=== PATIENT | female | born 1965 | race Hispanic/Latino ===

== ENCOUNTER 2018-12-31 14:02 | Emergency (ER) | payer SELFPAY ==
--- NOTE | 2018-12-31 16:08 | EDPHYS ---
Physician Documentation [facility] Name: Ev Mandujano Age: 53 yrs Sex: Female : 1965 Arrival Date: 12/31/2018 Time: 14:04 Bed 6 Private MD: ED Physician Rosas Chirinos HPI: 12/31 18:38 This 53 yrs old Female presents to ER via Ambulatory with complaints of gs Abnormal EKG, Sore Throat. 18:38 Onset: The symptoms/episode began/occurred 5 day(s) ago. Severity of symptoms: At their gs worst the symptoms were moderate, in the emergency department the symptoms are unchanged. Associated signs and symptoms: Pertinent positives: flu-like symptoms. The patient has experienced similar episodes in the past, a few times. The patient has been recently seen by a physician: the patient's primary care provider, earlier today, with similar presenting complaints, wanted to refer er to evaluation of ekg. 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 - Social history:: Smoking status: Patient/guardian denies using tobacco. - Ebola Screening: : No symptoms or risks identified at this time. ROS: 18:38 All other systems are negative. gs 18:38 Cardiovascular: Negative for chest pain, orthopnea. gs 18:38 Respiratory: Negative for orthopnea, pleurisy, shortness of breath. Exam: 16:06 ECG was reviewed by the Attending Physician. gs 18:38 Head/Face: Normocephalic, atraumatic. Eyes: Pupils equal round and reactive to light, gs extra-ocular motions intact. Lids and lashes normal. Conjunctiva and sclera are non-icteric and not injected. Cornea within normal limits. Periorbital areas with no swelling, redness, or edema. Neck: Trachea midline, no thyromegaly or masses palpated, and no cervical lymphadenopathy. Supple, full range of motion without nuchal rigidity, or vertebral point tenderness. No Meningismus. Chest/axilla: Normal chest wall appearance and motion. Nontender with no deformity. No lesions are appreciated. Cardiovascular: Regular rate and rhythm with a normal S1 and S2. No gallops, murmurs, or rubs. Normal PMI, no JVD. No pulse deficits. Respiratory: Lungs have equal breath sounds bilaterally, clear to auscultation and percussion. No rales, rhonchi or wheezes noted. No increased work of breathing, no retractions or nasal flaring. Abdomen/GI: Soft, non-tender, with normal bowel sounds. No distension or tympany. No guarding or rebound. No evidence of tenderness throughout. Back: No spinal tenderness. No costovertebral tenderness. Full range of motion. Skin: Warm, dry with normal turgor. Normal color with no rashes, no lesions, and no evidence of cellulitis. MS/ Extremity: Pulses equal, no cyanosis. Neurovascular intact. Full, normal range of motion. Neuro: Awake and alert, GCS 15, oriented to person, place, time, and situation. Cranial nerves II-XII grossly intact. Motor strength 5/5 in all extremities. Sensory grossly intact. Cerebellar exam normal. Normal gait. 18:38 Constitutional: The patient appears in no acute distress, alert, awake. 18:38 ENT: Posterior pharynx: erythema, that is mild. Vital Signs: 14:28 BP 144 / 87; Pulse 75; Resp 16 S; Temp 97.4(TE); Pulse Ox 97% on R/A; Weight 72.57 kg aa5 (R); Pain 7/10; MDM: 15:59 Patient medically screened. 18:38 Data reviewed: vital signs, nurses notes. Response to treatment: the patient's gs condition has returned to base line. 12/31 15:23 Order name: EKG; Complete Time: 15:23 12/31 15:23 Order name: EKG - Nurse/Tech; Complete Time: 15:52 EC:06 Rate is 93 beats/min. Rhythm is regular. ND interval is normal. QRS interval is gs prolonged. T waves are Normal. No ST changes noted. Clinical impression: Abnormal EKG without significant change. Interpreted by me. Administered Medications: No medications were administered Disposition: 12/31/18 16:07 Discharged to Home. Impression: Ventricular premature depolarization. - Condition is Stable. - Discharge Instructions: Premature Ventricular Contraction. - Medication Reconciliation Form, Thank You Letter, Antibiotic Education, Prescription Opioid Use form. - Follow up: Bob Phoenix MD; When: 2 - 3 days; Reason: Re-evaluation by your physician. Signatures: Neeta Love Audri, RN RN aa5 Rosas Chirinos MD MD gs Corrections: (The following items were deleted from the chart) 16:57 16:07 12/31/2018 16:07 Discharged to Home. Impression: Ventricular premature bd depolarization. Condition is Stable. Forms are Medication Reconciliation Form, Thank You Letter, Antibiotic Education, Prescription Opioid Use. Follow up: Bob Phoenix; When: 2 - 3 days; Reason: Re-evaluation by your physician. gs
--- NOTE | 2018-12-31 16:08 | ER ---
Nurse's Notes [facility] Name: Ev Mandjuano Age: 53 yrs Sex: Female : 1965 Arrival Date: 12/31/2018 Time: 14:04 Bed 6 Private MD: Diagnosis: Ventricular premature depolarization Presentation: 12/31 14:25 Presenting complaint: Patient states: sore throat x 2 week ago. Pt states "I went to [facility] [place] for the sore throat and they did an EKG and sent me here". Pt denies chest pain, denies palpitations. Transition of care: patient was not received from another setting of care. Onset of symptoms was December 31, 2018. Risk Assessment: Do you want to hurt yourself or someone else? Patient reports no desire to harm self or others. Initial Sepsis Screen: Does the patient meet any 2 criteria? No. Patient's initial sepsis screen is negative. Does the patient have a suspected source of infection? No. Patient's initial sepsis screen is negative. Care prior to arrival: None. 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 - Social history:: Smoking status: Patient/guardian denies using tobacco. - Ebola Screening: : No symptoms or risks identified at this time. Vital Signs: 14:28 BP 144 / 87; Pulse 75; Resp 16 S; Temp 97.4(TE); Pulse Ox 97% on R/A; Weight 72.57 kg aa5 (R); Pain 7/10; ED Course: 14:04 Patient arrived in ED. rg4 14:25 Arm band placed on. aa5 14:27 Triage completed. aa5 14:30 EKG completed in triage. Results shown to MD. aa5 15:22 Rosas Chirinos MD is Attending Physician. 16:07 Bob Phoenix MD is Referral Physician. gs Administered Medications: No medications were administered Outcome: 16:07 Discharge ordered by . gs 16:50 Discharged to home sg 16:57 Patient left the ED. bd Signatures: Neeta Love Steven, RN RN sg Brigette North RN RN aa5 Janie Panchal 4 Rosas Chirinso MD MD Corrections: (The following items were deleted from the chart) 14:30 14:28 Pulse 75bpm; Resp 16bpm; Spontaneous; Pulse Ox 97% RA; Temp 97.4F Temporal; 72.57 aa5 kg Reported; Pain 7/10; aa5
[2018-12-31 18:15] VITALS: BP 144/87; TEMP 97.4; O2SAT 97
--- NOTE | 2019-01-01 07:14 | EKG ---
Test Date: 2018-12-31 Test Time: 14:26:48 Primary Substance Abuse Counselor: OTTO MEASUREMENT RESULTS: Intervals: Rate: 93 GA: 160 QRSD: 100 QT: 380 QTc: 472 [place]: P: 49 GA: 160 QRS: -43 T: 37 INTERPRETIVE STATEMENTS: Sinus rhythm with frequent premature ventricular complexes Left axis deviation Pulmonary disease pattern Abnormal ECG No previous ECG available for comparison Electronically Signed On 01-01-19 07:13:36 CDT by Bob Phoenix
== END 2018-12-31 16:57 | disposition home or self-care (01) ==
LOC: ER 14:02
DX: I49.3 Ventricular premature depolarization (principal); I10 Essential (primary) hypertension
CPT/HCPCS: 93005; 99281